=== PATIENT | male | born 2000 | race American Indian/Alaskan Native ===

== ENCOUNTER 2020-01-30 18:15 | Emergency (ER) | payer OTHER ==
[2020-01-30 18:24] VITALS: BP 120/75
--- NOTE | 2020-01-30 19:44 | Cat Scan Report ---
CT maxillofacial without contrast CLINICAL HISTORY: Jaw pain FINDINGS: There is a slightly displaced oblique fracture involving the anterior right mandible with t he medial extent through the alveolar ridge between the medial and lateral incisors. The fracture ext ends to the submental a portion and lies just medial to the inferior alveolar foramen. There is also a nondisplaced fracture coursing through the angle of the left mandible along the dorsa l margin of the posterior left mandibular molar. There is relative anterior positioning of the right mandibular condyle indicative of mild anterior subluxation. The remaining facial bones, including the orbital belle, sinuses and zygomatic arches appear intact. There is extensive edema involving the facial soft tissues particularly the left buccal region. The o ptic globes demonstrate appropriate size and configuration. No significant post septal inflammatory c hanges are identified. The paranasal sinuses are clear without air-fluid levels at. The visualized mastoid air cells are als o pneumatized.. There are are multiple lymph nodes involving visualized upper neck and submandibular/ submental regions which are most likely reactive. All CT scans at this location are performed using t he CT dose reduction for ALARA by means of automated exposure control. IMPRESSION: There are fractures involving the submental portion of the right mandible and angle of the left nae ble as detailed above. Signer Name: Bernardo Carranza MD Signed: 01/30/2020 7:40 PM Workstation Name: [id number]
[2020-01-30] MEDS ORDERED: ONDANSETRON 4 MG/2 ML INJ IV ONE (20:15)
[2020-01-30] MEDS ORDERED: MORPHINE 4 MG/1 ML INJ IV ONE (20:15)
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
== END 2020-01-30 21:48 | disposition home or self-care (01) ==
LOC: ED 18:15
DX: S02.69XA Fracture of mandible of other specified site, initial encounter for closed fracture (principal); F12.10 Cannabis abuse, uncomplicated; Z79.2 Long term (current) use of antibiotics; Z79.899 Other long term (current) drug therapy; Z98.890 Other specified postprocedural states; Y04.2XXA Assault by strike against or bumped into by another person, initial encounter; Y93.89 Activity, other specified; Y92.89 Other specified places as the place of occurrence of the external cause; Y99.8 Other external cause status
CPT/HCPCS: 70486; 96374; 96375; 99283; J2270; J2405